=== PATIENT | female | born 1990 | race Caucasian/White ===

== ENCOUNTER 2018-09-06 14:46 | Emergency (ER) | payer MEDICAID, SELFPAY ==
[2018-09-06 14:47] VITALS: BP 133/79; PULSE 98; RESP 16; TEMP 36.8; O2SAT 99; BMI 22.4
--- NOTE | 2018-09-06 15:25 | RAD_ITS ---
STUDY: X-RAY - LEFT ANKLE REASON FOR EXAM: Female, 27 years old. Left ankle pain with lateral swelling. TECHNIQUE: 3 view(s) of the ankle. COMPARISON: None. FINDINGS: Normal visualized distal tibia and fibula. Normal medial and lateral malleoli. Normal tibiotalar articulation and ankle mortise. Normal visualized talus and calcaneus. The visualized subtalar, talonavicular, calcaneocuboid and tarsal articulations are normal. There is no demonstrated osseous destructive lesion or acute fracture. Swelling at the ankle is most prominent laterally. RAD/Ankle min 3 Views IMPRESSION: Lateral soft tissue swelling. No acute osseous abdomen of the left ankle. Electronically Signed: Carmelo Fink MD at 16:14 EDT , Service support ,
--- NOTE | 2018-09-06 15:27 | ED.DCSUM_ITS ---
- ER Visit Summary Date of Service: 09/06/18 Chief Complaint: Left ankle pain History of Present Illness: The patient is a 27 F who presents for left ankle pain and swelling. Patient states 5 days ago she was pulling a full suitcase out of the back of a pickup truck, and it swung down striking her in the left lateral ankle rather than hitting the ground. She has been having worsening pain since then. She has been able to bear weight but it is becoming more more painful and swollen. Patient is tried ibuprofen. She denies any fever, chills, sweats, shortness of breath, chest pain, calf pain, red streaks noted up the leg or any other complaints. Tetanus is not up-to-date. Patient denies any medical history. She does smoke. Physical Examination: Vital signs: afebrile, hemodynamically stable, no hypoxia on room air General: well nourished, well developed, hitting in bed in no distress Skin: warm, dry, no rash, no pallor HEENT: normocephalic and atraumatic; PERRL, EOMI, moist mucous membranes Cardiovascular: regular rate and rhythm without murmurs, no peripheral edema, 2+ pulses all distal extremities Respiratory: No increased work of breathing, lungs are clear to auscultation bilaterally, no rales, rhonchi or wheezing Abdominal: Abdomen is soft, nontender with normoactive bowel sounds, no guarding or rebound, no masses MSK: Moves all extremities, no deformities, normal strength, significant swelling and erythema over the lateral malleolus with the 2 cm scabbed over abrasion, no fluctuance, swelling over the medial malleolus without any erythema or induration, entire ankle tender to palpation , no distal foot swelling, pulses are 2+ and symmetric in the DP and PT, sensation and motor function intact, calf is nontender, no lymphangitis noted in the left lower extremity Neuro: Awake and alert, oriented ?4. No facial droop, sensation and motor function intact and symmetric Test Results: Abnormal Lab Results 09/06/18 09/06/18 09/06/18 15:50 15:50 15:50 WBC 7.9 RBC 4.55 Hgb 12.9 Hct 39.0 MCV 85.7 MCH 28.4 MCHC 33.1 RDW 13.4 RDW Differential 41.4 Plt Count 294 MPV 10.6 Immature Gran % (Auto) 0.100 Neut % (Auto) 64.7 Lymph % (Auto) 25.5 [place] % (Auto) 7.4 Eos % (Auto) 2.2 Baso % (Auto) 0.1 Absolute Neuts (auto) 5.1 Absolute Lymphs (auto) 2.01 Total Counted Not Reportable ESR 26 H Sodium 141 Potassium 3.0 L Chloride 107 Carbon Dioxide 28.0 Anion Gap 6 BUN 12 Creatinine 0.66 Estim Creat Clear Calc 114.19 Est GFR (MDRD) Af Amer 135 Est GFR (MDRD) Non-Af 112 BUN/Creatinine Ratio 18.0 Glucose 83 Calcium 8.5 C-React Prot Ext Range 19.40 H Serum , Qual NEGATIVE Clinical Impression(s) from Imaging Studies Ankle X-Ray 09/06/18 15:25 IMPRESSION: Lateral soft tissue swelling. No acute osseous abdomen of the left ankle. Electronically Signed: Carmelo Fink MD at 16:14 EDT , Service support , Medications Given Discontinued Medications Hydrocodone Bitart/Acetaminophen ([place] 5mg-325mg) 1 tablet PO X1 ONE Stop: 09/06/18 15:25 Last Admin: 09/06/18 16:41 Dose: 1 tablet Diphtheria/Tetanus/Acell Pertussis (Adacel) 0.5 ml IM .ONCE ONE Stop: 09/06/18 15:25 Last Admin: 09/06/18 16:41 Dose: 0.5 ml Clindamycin Phosphate 900 mg/ (Dextrose) 106 mls @ 75 mls/hr IV X1 ONE Stop: 09/06/18 18:45 Last Admin: 09/06/18 17:57 Dose: 75 mls/hr Emergency Department Course and Treatment: Patient presents 5 days after injuring her left ankle with a blunt injury from a suitcase, with a resulting abrasion. Patient now has erythema, pain and swelling in the vicinity of the abrasion. X-ray was performed and showed no deep space gas, ankle fracture, or obvious fluid collections. Patient was given [place] for significant pain. Labs were performed, showing no leukocytosis. Patient did have elevated ESR and CRP. Patient was started on clindamycin for treatment of cellulitis, suspected secondary to the abrasion from the suitcase. Patient was given strict return precautions. She was discharged home with pain medication as well. Patient is very well-appearing, afebrile and able to ambulate at time of discharge. Treatment Plan: [] Disposition: [] Impression: Left ankle cellulitis This note was generated with [employer] dictation software. It may contain incorrect words, spelling, and punctuation that were not noted in review of the chart prior to signing ED Disposition - Plan for ED Patient: Disposition: Home or Assisted Living Instructions: ED Infec Skin Cellulitis Prescriptions: Hydrocodone Bitart/Apap 5-325 [[place] 5MG-325MG] 1 tab PO Q6H PRN PRN 5 Days #15 tab PRN Reason: Pain Ondansetron [Zofran Odt] 4 mg PO Q8H PRN PRN #20 tab PRN Reason: Nausea RX: Clindamycin [Cleocin] 450 mg PO TID #90 cap Referrals: Care Physician,No Primary [Primary Care Provider] - Fast,Radha, DO [NON-STAFF] - 3-5 Days if not improving Additional Instructions: Take the antibiotic 3 times daily as prescribed for the full 10 days. Use ibuprofen for mild to moderate pain and you may use the [place] for severe pain. Use the Zofran as needed for nausea. If you develop a fever, red streaking up your leg, or any other concerning symptoms, return immediately for another evaluation. If you are not noticing improvement in the redness and swelling of your ankle after 2 days, return to the emergency department for another evaluation. If you have any worsening of your condition or any new concerning symptoms, please return immediately to the emergency department for another evaluation.
[2018-09-06 16:23] LABS: Absolute Lymphocyte Count 2.01 X10^3/ul (0.83-4.51); Absolute Neutrophil Count 5.1 X10^3/uL (2.0-7.7); Basophil# 0.01 X10^3/uL; Basophil% 0.1 % (0-1); Eosinophil# 0.17 X10^3/uL; Eosinophils% 2.2 % (0-5); Hemoglobin 12.9 g/dl (12.0-15.0); Lymphocyte # 2.01 X10^3/ul (4.0); Lymphocyte % 25.5 % (19-41); Mean Corp Hgb Conc 33.1 g/gl (32-36); Mean Corpuscular Hgb 28.4 pg (27.0-32.0); Mean Corpuscular Volume 85.7 fL (81-99); Mean Platelet Vol. 10.6 fl (6.2-12.0); Monocyte# 0.58 X10^3/uL; Monocyte% 7.4 % (0-10); Neutrophil # 5.09 X10^3/uL (2.7-7.7); Neutrophil % 64.7 % (47-70); Platelet Count 294 K/mm3 (150-450); RBC Distribution Width CV 13.4 % (11.6-14.6); RBC Distribution Width SD 41.4 fl (35.1-43.9); Red Blood Count 4.55 M/mm3 (4.2-5.4); White Blood Count 7.9 K/mm3 (4.4-11.0)
[2018-09-06 16:29] LABS: POSITIVE COUNT NO; POSITIVE DIFFERENTIAL NO; POSITIVE MORPHOLOGY NO
[2018-09-06 16:32] LABS: Anion Gap 6 (5-15); BUN 12 mg/dL (7-18); Calcium,Total 8.5 mg/dL (8.5-10.1); Chloride 107 mmol/L (98-107); Creatinine, Serum 0.66 mg/dL (0.55-1.02); EST Glomerular Filtration Rate 112 mL/min (>60); Est Glom Filt Rate - Afr Amer 135 mL/min (>60); Estimated Creatinine Clearance 114.19 ml/min; Glucose 83 mg/dL (74-106); Sodium Level 141 mmol/L (136-145)
[2018-09-06 16:38] LABS: Internal QC Validated? YES +Cl - CLEAR BKGD; Pregnancy, Serum, hCG Quali. NEGATIVE Negative
[2018-09-06 16:40] VITALS: BP 126/84; PULSE 95; RESP 16; O2SAT 100
[2018-09-06] MEDS: HYDROcodone Bitartrate/Apap 5/325 Tablet PO (16:41)
[2018-09-06] MEDS: Diphth,Pertuss(Acell),Tet Vac 0.5 ML Vial IM (16:41)
[2018-09-06 16:48] LABS: Erythrocyte Sedimentation Rate 26 mm/hr (0-20)
[2018-09-06 19:25] VITALS: BP 119/78; PULSE 101; RESP 16; O2SAT 100
[2018-09-06 19:26] VITALS: BP 119/78; PULSE 101; RESP 16; O2SAT 100
== END 2018-09-06 20:00 | disposition home or self-care (01) ==
PROVIDERS: Emergency Provider Emergency Medicine
DX: L03.116 Cellulitis of left lower limb (principal); F17.200 Nicotine dependence, unspecified, uncomplicated
CPT/HCPCS: 73610; 80048; 84703; 85025; 85652; 86140; 87040; 90715; 96365; 96366; 99283; J7050; A4216

== ENCOUNTER 2020-02-09 21:08 | Emergency (ER) | payer SELFPAY ==
[2020-02-09 21:09] VITALS: BP 116/89; PULSE 115; RESP 20; TEMP 36.8; O2SAT 100; BMI 29.9
--- NOTE | 2020-02-09 21:27 | RAD_ITS ---
HISTORY: COUGH ADDITIONAL HISTORY: None provided. EXAMINATION/TECHNIQUE: XR Chest 1 View AP/PA Number of images including paperwork: 1 COMPARISON: 09/06/2012 FINDINGS: LUNGS AND PLEURA: No consolidation, mass or pleural effusion. CARDIAC SILHOUETTE: Unremarkable. MEDIASTINUM AND MOLLY: Unremarkable. UPPER ABDOMEN: Unremarkable. SKELETON AND SOFT TISSUES: No acute skeletal findings. OTHER DEVICES AND HARDWARE: None. RAD/Chest 1 View (Portable) IMPRESSION: No acute cardiopulmonary abnormality. at 2232 Reported and signed by: Portia Cannon MD Electronically Signed: Portia Cannon MD at 22:32 EDT Tel , Service support ,
--- NOTE | 2020-02-09 21:30 | ED.VIS.GEN ---
History of Present Illness Chief Complaint: Cough Informant: Patient Onset: Today Current Severity: Mild Maximum Severity: Mild Narrative: Patient presents secondary to cough with a temperature of 101. She does report some chest pressure. Son is ill with cough as well. 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 - Past Medical History (1) Anxiety Status: Chronic Past Medical History - Allergies and Home Meds Allergies/Adverse Reactions: Allergies No Known Allergies Allergy (Verified 09/06/18 15:30) Primary Care Physician: Care Physician,No Primary [Primary Care Provider] - Prior records reviewed: Yes Lives: With Family Smoking Status: Current every day smoker Review of Systems General: Reports: Fever Eyes: Denies: Visual changes - bilaterally ENT: Denies: Bilateral ear pain Cardiovascular: Reports: Chest pain - Chest pressure Respiratory: Reports: Dyspnea, Cough, Sputum Gastrointestinal: Denies: Abdominal pain, Nausea, Vomiting, Diarrhea Musculoskeletal: Denies: Myalgias, Extremity Pain Skin: Denies: Rash Neurological: Denies: Headache Hematologic: Denies: Easy bruising, Easy bleeding Allergy: Denies: Uticaria Physical Exam Vital Signs/Narrative: Vital Signs Temp Pulse Resp BP Pulse Ox 02/09/20 21:09 98.3 F 115 H 20 H 116/89 H 100 Inital Vital Signs reviewed: Yes General: Well nourished, Well developed Head: Normocephalic ENT: Moist mucous membranes, TM's clear, - - Mild posterior pharyngeal drainage Neck: Supple Cardiovascular: Regular rate, Regular rhythm Respiratory: No distress, CTA bilaterally Abdomen: Soft, Nontender Back: Nontender Extremities: Nontender Skin: Normal color Neurological: Alert, Oriented x3 Psychological: Normal affect Diagnostic/Tx/Re-eval Portable chest x-ray per my review reveals no focal infiltrate. - Medical Decision Making Covid test was sent. Patient is given instructions on how to look of her results. She is given information on quarantining until her results are available. ED Disposition - Plan for ED Patient: Disposition: Home or Assisted Living Diagnosis: Viral URI Instructions: ED URI Viral Referrals: Negin Gonzalez MD [STAFF PHYSICIAN] - As Needed
== END 2020-02-09 22:53 | disposition home or self-care (01) ==
PROVIDERS: Emergency Provider Emergency Medicine
DX: J06.9 Acute upper respiratory infection, unspecified (principal); F17.200 Nicotine dependence, unspecified, uncomplicated
CPT/HCPCS: 71045; 87635; 99281; 99283; U0003